=== PATIENT | male | born 2000 | race Caucasian/White ===

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

== ENCOUNTER 2022-09-10 22:40 | Emergency (ER) | payer MEDICAID ==
[~2022-09-10] VITALS: Ht 177.8 cm; Wt 65.0 kg
[~2022-09-10 22:40] MED LIST: ONDA4TAB6 PO
[2022-09-10 22:44] VITALS: BP 129/89
[2022-09-10] MEDS ORDERED: LIDOCAINE 2% (20mg/ml) w/EPINEPHRINE 1:200,000-PF 10 ML inj. SQ ONE (23:15)
[2022-09-10] MEDS ORDERED: LIDOCAINE 2%/EPI 1:100,000 inj. Multi-dose 20 ML VIAL SQ ONE (23:20)
[2022-09-10] MEDS ORDERED: bacitracin 15gm ointment TP ONE (23:45)
== END 2022-09-11 00:13 | disposition home or self-care (01) ==
LOC: ER 22:40
DX: S61.411A Laceration without foreign body of right hand, initial encounter (principal); S61.212A Laceration without foreign body of right middle finger without damage to nail, initial encounter; F12.90 Cannabis use, unspecified, uncomplicated; F15.20 Other stimulant dependence, uncomplicated; W25.XXXA Contact with sharp glass, initial encounter; Y93.89 Activity, other specified; Y92.89 Other specified places as the place of occurrence of the external cause; Y99.8 Other external cause status
CPT/HCPCS: 12002; 73130; 99283; A6258

== ENCOUNTER 2023-12-20 18:45 | Emergency (ER) | payer MEDICAID, OTHER ==
[~2023-12-20] VITALS: Ht 177.8 cm; Wt 72.0 kg
[2023-12-20 18:58] VITALS: TEMP 98.6
[2023-12-20] MEDS ORDERED: ketorolac trometh inj. 60 MG/2 ML VIAL IM ONE (20:05)
[2023-12-20 20:30] VITALS: BP 124/85; PULSE 68; O2SAT 99
[2023-12-20] MEDS: ondansetron 4mg rapidly disintigrating tab PO ONE (20:30)
[2023-12-20 20:31] VITALS: RESP 17
[2023-12-20] MEDS: HYDROcodone/acetaminophen 5mg/325mg tablet PO ONE (20:31)
[2023-12-20] MEDS: ketorolac tromethamine 15mg/ml inj. IM ONE (20:45)
== END 2023-12-20 20:35 | disposition left against medical advice (07) ==
LOC: ER 18:46
DX: R10.11 Right upper quadrant pain (principal); F12.90 Cannabis use, unspecified, uncomplicated; F15.90 Other stimulant use, unspecified, uncomplicated; F10.90 Alcohol use, unspecified, uncomplicated
CPT/HCPCS: 71046; 99283

== ENCOUNTER 2024-06-24 19:41 | Emergency (ER) | payer MEDICAID ==
[~2024-06-24] VITALS: Ht 180.3 cm; Wt 68.0 kg
[2024-06-24 20:15] LABS: BASOPHILS # (AUTO) 0.1 X10'3 (0-0.2); BASOPHILS % (AUTO) 0.9 % (0-1); EOSINOPHILS # (AUTO) 0.2 X10'3 (0-0.9); HEMATOCRIT 39.2 % (42.0-52.0); HEMOGLOBIN 13.6 g/dl (14.0-17.9); LYMPHOCYTES # (AUTO) 2.5 X10'3 (1.1-4.8); LYMPHOCYTES % (AUTO) 25.2 % (21-51); MEAN CORPUSCULAR HEMOGLOBIN 30.1 PG (27.0-31.0); MEAN CORPUSCULAR HGB CONC 34.7 g/dL (33.0-36.5); MEAN CORPUSCULAR VOLUME 86.6 FL (78-98); MONOCYTES % (AUTO) 10.2 % (2-12); NEUTROPHILS # (AUTO) 6.1 X10'3 (1.8-7.7); NEUTROPHILS % (AUTO) 61.7 % (42-75); PLATELET COUNT 378 X10'3 (140-440); RED BLOOD COUNT 4.53 X10'6 (4.70-6.10); RED CELL DISTRIBUTION WIDTH 12.9 % (11.5-14.5); WHITE BLOOD COUNT 9.8 X10'3 (4.5-11.0)
[2024-06-24] MEDS: charcoal, activated 50 GM/240 ML bottle PO ONE (20:27)
[2024-06-24 20:30] LABS: BILIRUBIN,URINE SMALL (Neg); CLARITY,URINE SLIGHTLY CLOUDY (Clear); COLOR,URINE YELLOW (Yellow); GLUCOSE, URINE NEGATIVE (Neg); KETONES,URINE >=80 mg/dl (Neg); LEUKOCYTE ESTERASE ,URINE NEGATIVE (Neg); NITRITES, URINE NEGATIVE (Neg); OCCULT BLOOD,URINE LARGE (Neg); PROTEIN,URINE 30 mg/dl (Neg); UROBILINOGEN,URINE 0.2 E.U/dL (0.2-1.0)
[2024-06-24 20:32] LABS: ALANINE AMINOTRANSFERASE 29 U/L (12-78); ALBUMIN 4.4 G/DL (3.4-5.0); ALBUMIN/GLOBULIN RATIO 1.2 (1.1-1.5); ALKALINE PHOSPHATASE 113 IU/L (46-116); ANION GAP 12 (8-16); ASPARTATE AMINO TRANSFERASE 26 U/L (10-37); BILIRUBIN,TOTAL 0.7 MG/DL (0.1-1.0); BLOOD UREA NITROGEN 12 MG/DL (7-18); BUN/CREATININE RATIO 11.2 (10.0-20.0); CALCIUM 9.2 MG/DL (8.5-10.1); CHLORIDE 108 MMOL/L (99-107); CREATININE 1.07 MG/DL (0.60-1.10); GLUCOSE 99 MG/DL (70-104); POTASSIUM 3.5 MMOL/L (3.5-5.1); SODIUM 146 MMOL/L (135-145); TOTAL CARBON DIOXIDE 26.4 MMOL/L (24-32); TOTAL PROTEIN 8.1 G/DL (6.4-8.2); eCRCL 103 ML/MIN; eGFR 86 ML/MIN
[2024-06-24] MEDS ORDERED: NO HOME MEDS (20:34)
[2024-06-24 20:38] LABS: UA COLLECTION TYPE CLN CATCH MIDSTREAM
[2024-06-24 20:40] LABS: MUCUS STRANDS MANY /LPF (Neg)
[2024-06-24 20:41] LABS: AMORPHOUS URATES 2+; RBC,URINE 20-50 /HPF (0-2); SQUAMOUS EPITHELIAL CELL,UR FEW /LPF (FEW)
[2024-06-24 20:42] LABS: BACTERIA,URINE NONE SEEN /HPF (Neg); WBC,URINE NONE SEEN /HPF (0-4)
[2024-06-24 20:44] LABS: PRO BRAIN NATRIURETIC PEPTIDE 58 PG/ML (0-125); SALICYLATE 1.2 MG/DL (4.0-20.0); THYROID STIMULATING HORMONE 1.19 ulU/ml (0.34-4.50)
[2024-06-24 20:45] LABS: ACETAMINOPHEN < 2.0 UG/ML (10-30); ETHANOL < 10 MG/DL (<10)
[2024-06-24 20:45] LABS: URINE AMPHETAMINE SCREEN NEGATIVE (Neg); URINE BARBITUATE SCREEN NEGATIVE (Neg); URINE BENZODIAZEPINES SCREEN NEGATIVE (Neg); URINE CANNABINOID SCREEN POSITIVE (Neg); URINE COCAINE SCREEN NEGATIVE (Neg); URINE METHADONE SCREEN NEGATIVE (Neg); URINE OPIATE SCREEN NEGATIVE (Neg); URINE PHENCYCLIDINE SCREEN NEGATIVE (Neg)
[2024-06-24] MEDS: normal saline 1000ML IV soln IVB ONE (21:54)
[2024-06-24] MEDS: potassium Cl 20 mEq SR tablet PO STA (23:47)
[2024-06-25] MEDS: acetaminophen 325mg tablet PO PRN (20:16)
[2024-06-26 06:00] VITALS: BP 124/72; PULSE 79; TEMP 98; O2SAT 97
[2024-06-26 07:45] VITALS: RESP 16
== END 2024-06-26 08:55 ==
LOC: ER 19:42
DX: T14.91XA Suicide attempt, initial encounter (principal); T39.315A Adverse effect of propionic acid derivatives, initial encounter; F32.A Depression, unspecified; F12.90 Cannabis use, unspecified, uncomplicated; F15.90 Other stimulant use, unspecified, uncomplicated; F19.90 Other psychoactive substance use, unspecified, uncomplicated; F10.90 Alcohol use, unspecified, uncomplicated; Z20.822 Contact with and (suspected) exposure to COVID-19; X83.8XXA Intentional self-harm by other specified means, initial encounter; Y93.89 Activity, other specified; Y92.89 Other specified places as the place of occurrence of the external cause; Y99.8 Other external cause status
CPT/HCPCS: 36415; 71045; 80053; 80305; 80320; 80329; 81001; 83880; 84443; 84484; 85025; 87811; 93005; 96360; 96361; 99285; J7030

== ENCOUNTER 2024-09-16 20:46 | Emergency (ER) | payer MEDICAID ==
[~2024-09-16] VITALS: Ht 177.8 cm; Wt 68.0 kg
[~2024-09-16 20:46] MED LIST changes: +NO HOME MEDS; -ONDA4TAB6 PO
[2024-09-16 21:09] LABS: BASOPHILS # (AUTO) 0.1 X10'3 (0-0.2); BASOPHILS % (AUTO) 0.6 % (0-1); EOSINOPHILS # (AUTO) 0.1 X10'3 (0-0.9); EOSINOPHILS % (AUTO) 0.6 % (0-6); HEMOGLOBIN 15.7 g/dl (14.0-17.9); LYMPHOCYTES # (AUTO) 2.6 X10'3 (1.1-4.8); LYMPHOCYTES % (AUTO) 19.6 % (21-51); MEAN CORPUSCULAR HEMOGLOBIN 29.8 PG (27.0-31.0); MEAN CORPUSCULAR HGB CONC 34.3 g/dL (33.0-36.5); MEAN CORPUSCULAR VOLUME 86.9 FL (78-98); MEAN PLATELET VOLUME 7.7 FL (7.4-10.4); MONOCYTES % (AUTO) 7.6 % (2-12); NEUTROPHILS # (AUTO) 9.4 X10'3 (1.8-7.7); NEUTROPHILS % (AUTO) 71.6 % (42-75); PLATELET COUNT 289 X10'3 (140-440); RED BLOOD COUNT 5.29 X10'6 (4.70-6.10); RED CELL DISTRIBUTION WIDTH 12.8 % (11.5-14.5); WHITE BLOOD COUNT 13.1 X10'3 (4.5-11.0)
[2024-09-16 21:12] LABS: BILIRUBIN,URINE NEGATIVE (Neg); CLARITY,URINE CLEAR (Clear); COLOR,URINE YELLOW (Yellow); GLUCOSE, URINE NEGATIVE (Neg); KETONES,URINE TRACE mg/dl (Neg); LEUKOCYTE ESTERASE ,URINE NEGATIVE (Neg); NITRITES, URINE NEGATIVE (Neg); OCCULT BLOOD,URINE NEGATIVE (Neg); PH,URINE 6.5 (4.8-8.0); PROTEIN,URINE TRACE mg/dl (Neg)
[2024-09-16 21:14] LABS: UA COLLECTION TYPE VOIDED
[2024-09-16] MEDS ORDERED: QUET-28 (21:15)
[2024-09-16] MEDS ORDERED: SERT-434 (21:15)
[2024-09-16] MEDS ORDERED: TRAZ-256 (21:15)
[2024-09-16] MEDS ORDERED: PROP20TA6 (21:15)
[2024-09-16] MEDS ORDERED: HYDR-3686 (21:15)
[2024-09-16] MEDS ORDERED: BUSP10TA3 (21:15)
[2024-09-16 21:24] LABS: ALANINE AMINOTRANSFERASE 38 U/L (12-78); ALBUMIN 4.4 G/DL (3.4-5.0); ALKALINE PHOSPHATASE 168 IU/L (46-116); ANION GAP 9 (8-16); ASPARTATE AMINO TRANSFERASE 23 U/L (10-37); BILIRUBIN,TOTAL 0.9 MG/DL (0.1-1.0); BLOOD UREA NITROGEN 14 MG/DL (7-18); BUN/CREATININE RATIO 13.3 (10.0-20.0); CHLORIDE 101 MMOL/L (99-107); CREATININE 1.05 MG/DL (0.60-1.10); GLUCOSE 105 MG/DL (70-104); POTASSIUM 3.7 MMOL/L (3.5-5.1); SODIUM 138 MMOL/L (135-145); TOTAL CARBON DIOXIDE 28.5 MMOL/L (24-32); TOTAL PROTEIN 8.8 G/DL (6.4-8.2); eCRCL 105 ML/MIN; eGFR 88 ML/MIN
[2024-09-16 21:24] LABS: URINE AMPHETAMINE SCREEN NEGATIVE (Neg); URINE BARBITUATE SCREEN NEGATIVE (Neg); URINE BENZODIAZEPINES SCREEN NEGATIVE (Neg); URINE CANNABINOID SCREEN POSITIVE (Neg); URINE COCAINE SCREEN NEGATIVE (Neg); URINE METHADONE SCREEN NEGATIVE (Neg); URINE OPIATE SCREEN NEGATIVE (Neg); URINE PHENCYCLIDINE SCREEN NEGATIVE (Neg)
[2024-09-16 21:32] LABS: BACTERIA,URINE NONE SEEN /HPF (Neg); RBC,URINE NONE SEEN /HPF (0-2); WBC,URINE 0-4 /HPF (0-4)
[2024-09-16 21:33] LABS: MUCUS STRANDS MANY /LPF (Neg); SQUAMOUS EPITHELIAL CELL,UR FEW /LPF (FEW)
[2024-09-16 21:34] LABS: THYROID STIMULATING HORMONE 1.59 ulU/ml (0.34-4.50)
[2024-09-16 21:36] LABS: ETHANOL < 10 MG/DL (<10)
[2024-09-16] MEDS ORDERED: TRAZ-256 PO (22:42)
[2024-09-16] MEDS ORDERED: BUSP10TA11 PO (22:42)
[2024-09-16] MEDS ORDERED: PROP20TA6 PO (22:42)
[2024-09-16] MEDS ORDERED: QUET-28 PO (22:42)
[2024-09-16] MEDS ORDERED: HYDR-3686 PO (22:42)
[2024-09-16] MEDS ORDERED: SERT-434 PO (22:42)
[2024-09-17] MEDS: propranolol 10mg tablet PO SCH (08:44)
[2024-09-17] MEDS: sertraline 50mg tablet PO SCH (08:44)
[2024-09-17] MEDS: hydrOXYzine 25 MG tablet PO SCH (08:44)
[2024-09-17] MEDS: busPIRone 5mg tablet PO SCH (08:45)
[2024-09-17 18:41] VITALS: BP 118/86; PULSE 78; RESP 16; TEMP 98.4; O2SAT 98
[2024-09-17] MEDS ORDERED: QUETIAPINE 50 MG TAB.SR.24H PO SCH (21:00)
[2024-09-17] MEDS ORDERED: traZODone 50mg tablet PO SCH (21:00)
== END 2024-09-17 18:49 | disposition still patient (30) ==
LOC: ER 20:46
DX: R45.851 Suicidal ideations (principal); Z59.00 Homelessness unspecified; F32.A Depression, unspecified; F12.90 Cannabis use, unspecified, uncomplicated; F15.90 Other stimulant use, unspecified, uncomplicated; Z20.822 Contact with and (suspected) exposure to COVID-19
CPT/HCPCS: 36415; 80053; 80305; 80320; 81001; 84443; 85025; 87811; 99284; Q0177